=== PATIENT | male | born 1975 | race Caucasian/White ===

== ENCOUNTER 2018-01-29 12:37 | Emergency (ER) | payer OTHER ==
[~2018-01-29] VITALS: Ht 190.5 cm; Wt 90.7 kg
[2018-01-29] MEDS ORDERED: PERCOCET 5-3251 EACH PO (14:27)
[2018-01-29] MEDS ORDERED: ROBAXIN-750750 MG PO (14:28)
== END 2018-01-29 15:03 | disposition home or self-care (01) ==
LOC: ED 12:37
DX: S30.0XXA Contusion of lower back and pelvis, initial encounter (principal); S20.229A Contusion of unspecified back wall of thorax, initial encounter; Z88.8 Allergy status to other drugs, medicaments and biological substances; Z88.6 Allergy status to analgesic agent; Z88.5 Allergy status to narcotic agent; Y04.0XXA Assault by unarmed brawl or fight, initial encounter
CPT/HCPCS: 71046; 72100; 81001; 99284

== ENCOUNTER 2022-06-25 14:53 | Emergency (ER) | payer OTHER ==
[~2022-06-25] VITALS: Ht 190.5 cm; Wt 97.5 kg
[~2022-06-25 14:53] MED LIST: PERCOCET 5-3251 EACH PO; ROBAXIN-750750 MG PO
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
[2022-06-25] MEDS ORDERED: LAMICTAL100 MG PO (16:59)
[2022-06-25] MEDS ORDERED: CEPHALEXIN500 M1 PO (17:13)
[2022-06-25] MEDS ORDERED: HYDROCODON-ACE1 EA11 PO (17:13)
== END 2022-06-25 17:30 | disposition home or self-care (01) ==
LOC: ED 14:53
DX: S52.602A Unspecified fracture of lower end of left ulna, initial encounter for closed fracture (principal); F17.200 Nicotine dependence, unspecified, uncomplicated; W01.198A Fall on same level from slipping, tripping and stumbling with subsequent striking against other object, initial encounter
CPT/HCPCS: 29125; 73090; 99283-25; J0690; J3010